=== PATIENT | female | born 2000 | race Two or more races ===

== ENCOUNTER 2024-11-22 08:17 | Emergency (ER) | payer OTHER ==
[~2024-11-22] VITALS: Ht 160 cm; Wt 77.1 kg
[2024-11-22 08:34] VITALS: BP 132/77; O2SAT 100
[2024-11-22] MEDS ORDERED: ACETAMINOPHEN 500 MG GEL..CAP PO ONE (11:31)
== END 2024-11-22 12:35 | disposition home or self-care (01) ==
LOC: ER 08:20
DX: O26.899 Other specified pregnancy related conditions, unspecified trimester (principal); J02.9 Acute pharyngitis, unspecified; Z3A.00 Weeks of gestation of pregnancy not specified; Z20.822 Contact with and (suspected) exposure to COVID-19

== ENCOUNTER 2025-01-30 08:47 | Emergency (ER) | payer OTHER ==
[~2025-01-30] VITALS: Ht 157.5 cm; Wt 77.1 kg
[2025-01-30] MEDS ORDERED: RINGERS SOLUTION,LACTATED 1,000 ML IV STA (09:40)
[2025-01-30] MEDS ORDERED: ONDANSETRON HCL 2 MG/ML VIAL IV ONE (09:45)
[2025-01-30 10:15] LABS: HEMATOCRIT 30.2 % (36.0-45.00); HEMOGLOBIN 10.2 g/dL (12.0-15.00); MEAN CORPUSCULAR HEMOGLOBIN 29.2 pg (27.00-32.0); MEAN CORPUSCULAR HGB CONC 33.9 g/dl (32.0-36.0); PLATELET COUNT 142 K/uL (150-450); RED BLOOD COUNT 3.51 M/uL (4.00-6.00); RED CELL DISTRIBUTION WIDTH 13.4 % (11.5-14.5)
[2025-01-30 10:43] LABS: CALCIUM 8.8 mg/dL (8.5-10.1); CREATININE SERUM 0.34 mg/dL (0.55-1.02); GFR 234.6; POTASSIUM 3.67 mEq/L (3.5-5.1)
[2025-01-30 12:35] LABS: URINE BACTERIA 482.1 uL (0.0-1933); URINE EPITHELIAL CELLS 19.6 uL (0.0-38.8); URINE RBC 3.9 uL (0.0-20.8); URINE WBC 6.1 uL (0.0-23.2)
[2025-01-30 13:03] LABS: PH,URINE 8.5 (5.0-8.0); URINE APPEARANCE Cloudy; URINE BILIRRUBIN Negative (NEGATIVE); URINE BLOOD Negative; URINE COLOR Yellow; URINE GLUCOSE Negative (NEGATIVE); URINE LEUKOCYTE Negative; URINE NITRATE Negative; URINE PROTEIN Negative (NEGATIVE)
[2025-01-30 13:05] LABS: URINE KETONE 40 (NEGATIVE)
== END 2025-01-30 15:27 | disposition home or self-care (01) ==
LOC: ER 08:47
PROVIDERS: General Practice
DX: O21.8 Other vomiting complicating pregnancy (principal); Z3A.19 19 weeks gestation of pregnancy; Z20.822 Contact with and (suspected) exposure to COVID-19

== ENCOUNTER 2025-03-09 17:59 | Emergency (ER) | payer OTHER ==
[~2025-03-09] VITALS: Ht 160 cm; Wt 78.9 kg
[2025-03-09] MEDS ORDERED: FAMOTIDINE/PF 20 MG in 0.9 % SODIUM CHLORIDE 8 ML IV PUSH STA (18:47)
[2025-03-09] MEDS ORDERED: DIPHENOXYLATE HCL/ATROPINE 1 UDTAB TABLET PO ONE (19:00)
[2025-03-09] MEDS ORDERED: ONDANSETRON HCL 2 MG/ML VIAL IV ONE (19:00)
[2025-03-09] MEDS ORDERED: RINGERS SOLUTION,LACTATED 1,000 ML IV SCH (19:00)
[2025-03-09] MEDS ORDERED: ONDANSETRON HCL 2 MG/ML VIAL ONE (19:21)
[2025-03-09] MEDS ORDERED: FAMOTIDINE/PF 20 MG/2 ML VIAL ONE (19:22)
[2025-03-09 19:46] LABS: BASO % 0.1 % (0.1-1.2); HEMATOCRIT 28.1 % (34.1-44.9); HEMOGLOBIN 9.6 g/dL (11.2-15.7); LYMPH # 0.93 (1.18-3.74); LYMPH % 11.8 % (19.3-53.1); MEAN CORPUSCULAR HEMOGLOBIN 28.9 pg (25.6-32.2); MONO # 0.55 (0.24-0.82); NEUT # 6.36 (1.56-6.13); NEUT % 80.5 % (34.0-71.1); PLATELET COUNT 133 K/uL (163-369); RED BLOOD COUNT 3.32 M/uL (3.93-5.22); RED CELL DISTRIBUTION WIDTH 13.6 % (11.6-14.4)
[2025-03-09 20:13] LABS: ALBUMIN 2.5 gm/dL (3.4-5.0); BILIRUBIN TOTAL 0.43 mg/dL (0.3-1.2); CALCIUM 8.5 mg/dL (8.5-10.1); CREATININE SERUM 0.46 mg/dL (0.55-1.02); GFR 164.2; GLOBULINA 3.9 G/DL (2.4-3.5); TOTAL PROTEIN 6.4 gm/dL (6.4-8.2)
[2025-03-09 20:23] LABS: POTASSIUM 2.9 mEq/L (3.5-5.1)
[2025-03-09] MEDS ORDERED: BUTALB/ACETAMINOPHEN/CAFFEINE 1 TAB TABLET PO ONE (21:36)
[2025-03-09] MEDS ORDERED: BUTALB/ACETAMINOPHEN/CAFFEINE 1 TAB TABLET PO STA (21:36)
[2025-03-09] MEDS ORDERED: POTASSIUM CHLORIDE 10 MEQ CAPSULE PO ONE (21:45)
[2025-03-09] MEDS ORDERED: ONDANSETRON ODT8 MG PO (22:18)
[2025-03-09] MEDS ORDERED: PEPCID20 MG PO (22:18)
== END 2025-03-09 22:45 | disposition home or self-care (01) ==
LOC: ER 18:00
PROVIDERS: General Practice
DX: Z34.90 Encounter for supervision of normal pregnancy, unspecified, unspecified trimester (principal); Z3A.24 24 weeks gestation of pregnancy; R19.7 Diarrhea, unspecified

== ENCOUNTER → 2025-04-25 09:53 | Outpatient (CLI) | payer OTHER ==
[~2025-04-25 09:53] MED LIST: ONDANSETRON ODT8 MG PO; PEPCID20 MG PO
== END | disposition home or self-care (01) ==
LOC: PRENATAL 09:53
PROVIDERS: ATTEND Obstetrics & Gynecology Maternal & Fetal Medicine
DX: O26.849 Uterine size-date discrepancy, unspecified trimester (principal); O36.8199 Decreased fetal movements, unspecified trimester, other fetus; O34.219 Maternal care for unspecified type scar from previous cesarean delivery; O99.019 Anemia complicating pregnancy, unspecified trimester; O32.9XX0 Maternal care for malpresentation of fetus, unspecified, not applicable or unspecified; Z3A.33 33 weeks gestation of pregnancy